=== PATIENT | male | born 1960 | race Caucasian/White ===

== ENCOUNTER 2025-03-13 07:59 | Outpatient (CLI) | payer MEDICARE, SELFPAY ==
[2025-03-13 10:51] LABS: Anion Gap 12 (5-15); BUN 12 mg/dL (4-19); BUN/Creat Ratio 12.7 RATIO (10-20); Calcium,Total 9.2 mg/dL (7.6-11.0); Carbon Dioxide 22.2 mmol/L (21.0-32.0); Chloride 105 mmol/L (98-108); Cholesterol 124 mg/dL (<=200); Creatinine, Serum 0.91 mg/dL (0.70-1.20); EST Glomerular Filtration Rate 93 (>60); Glucose 94 mg/dL (70-99); High Density Lipoprotein 30 mg/dL; Low Density Lipoprotein Calc. 79 mg/dL; PSA,Total- Diagnostic 0.62 ng/mL (0.00-4.00); Potassium 3.6 mmol/L (3.3-5.1); Sodium Level 140 mmol/L (133-145); Triglycerides 77 mg/dL; Very Low Density Lipoprotein 15 mg/dL (5-40); cholesterol:hdl ratio screen 4.18
== END 2025-03-13 23:59 | disposition home or self-care (01) ==
LOC: MTLAB 08:09
PROVIDERS: PCP Family Medicine; Referring Provider Family Medicine; Visit Provider Family Medicine
DX: Z00.00 Encounter for general adult medical examination without abnormal findings (principal)
CPT/HCPCS: 36415; 80048; 80061; 84153

== ENCOUNTER 2025-05-02 06:43 | Day surgery (SDC) | payer MEDICARE, SELFPAY ==
[2025-05-02] VITALS (7 sets, daily range): BP systolic 105–156; BP diastolic 70–92; PULSE 65–86; RESP 16–18; TEMP 36.3–36.7; O2SAT 92–96; BMI 32.8
--- OUTSIDE RECORDS SUMMARY | 2025-05-02 06:47 | XMS RPT_ITS | CCD ---
Author Organization [facility] Inform ion Partnership [facility] Care Team Providers Care Material Control Manager Name Role Phone Unavailable Primary Care Provider Unavailserge Culp MD, Dr. Tilley Primary Care Provider Robbi TREVINO, Dr. Tilley Attending Provider Robbi TREVINO, Dr. Tilley Referring Provider [phone] Jarek Culp Referring Unavailable Jarek Culp Attending Unavailable Jarek Culp Primary Care Unavailable Guy Rojo Attending Unavailable Jarek Culp Referring Unavailable Jarek Culp Primary Care Unavailable Problems Problem Classification Problem Date Documented Da te Episodic/Chronic Other circulatory disease (1 source) Elevated blood-pressure reading without diagnosis of hypertension; Translations: [Elevated blood-pressure reading, without diagnosis of hypertension] Episodic Other nervous system disorders (1 source) Paresthesia of foot ; Translations: [Other disturbances of skin sensation] Episodic Results Test Name Value Interpretation Reference Range Facility Anion gap in Serum or Plasma Ordered By: Jarek Culp on 03-13-2025 Anion gap [Moles/Vol] 12 mmol/L 02-20 [facility] BUN/creatinine ratioOrdered By: Jarek Culp on 03-13-2025 Urea nitrogen/Creatinine [Mass ratio] 12.7 mg/mg - [facility] Basic Metabolic Profile (BMP )on 03-13-2025 BUN/CRE 12.7 RATIO Normal 07-28 [facility] Comment on above: Performed By: #### L 500.2500, L500.4100, L501.9940 #### [facility] [address] [place], [address] Calcium [Mass/Vol] 9.2 mg/dL Normal 7.6-11.0 [facility] Comment on above: Performed By: #### L 500.2500, L500.4100, L501.9940 #### [facility] [address] [place], [address] Chloride [Moles/Vol] 105 mmol/L Normal 98-108 [facility] Comment on above: Performed By: #### L 500.2500, L500.4100, L501.9940 #### [facility] [address] [place], [address] CO2 [Moles/Vol] 22.2 mmol/L Normal 21.0-32.0 [facility] Comment on above: Performed By: #### L 500.2500, L500.4100, L501.9940 #### [facility] [address] [place], [address] Creatinine [Mass/Vol] 0.91 mg/dL Normal 0.70-1.20 [facility] Comment on above: Performed By: #### L 500.2500, L500.4100, L501.9940 #### [facility] [address] [place], [address] GAP 12 Normal 5-15 [facility] Comment on above: Performed By: #### L 500.2500, L500.4100, L501.9940 #### [facility] [address] [place], [address] GFR/1.73 sq M.predicted among non-blacks MDRD (S/P/Bld) [Vol rate/Area] 93 mL/min/{1.73_m2} Normal >60 [facility] Comment on above: Result Comment: mL/m in/1.73m2 CKD-EPI Creatinine Equation (2020) Performed By: #### L 500.2500, L500.4100, L501.9940 #### [facility] [address] [place], [address] Glucose [Mass/Vol] 94 mg/dL Normal 70-99 [facility] Comment on above: Performed By: #### L 500.2500, L500.4100, L501.9940 #### [facility] [address] [place], [address] Potassium [Moles/Vol] 3.6 mmol/L Normal 3.3-5.1 [facility] Comment on above: Performed By: #### L 500.2500, L500.4100, L501.9940 #### [facility] [address] [place], [address] Sodium [Moles/Vol] 140 mmol/L Normal 133-145 [facility] Comment on above: Performed By: #### L 500.2500, L500.4100, L501.9940 #### [facility] [address] [place], [address] Urea nitrogen [Mass/Vol] 12 mg/dL Normal 4-19 [facility] Comment on above: Performed By: #### L 500.2500, L500.4100, L501.9940 #### [facility] [address] [place], [address] Calculated very low density lipoprotein (VLDL) cholesterol measurementOrdered By: Jarek Culp on 03-13-2025 Calculated very low density lipoprotein (VLDL) cholesterol measurement 15 mg/dL 5-40 [facility] Carbon dioxide, total [Moles /volume] in Central venous bloodOrdered By: Jarek Culp on 03-13-2025 CO2 [Moles/Vol] 22.2 mmol/L 21.0-32.0 [facility] Chloride assayOrdered By: Joni Culp on 03-13-2025 Chloride [Moles/Vol] 105 mmol/L 98-108 [facility] Glomerular filtration rate ( GFR) estimation/1.73 sq m using serum, plasma, or whole bOrdered By: Jarek Culp on 03-13-2025 GFR/1.73 sq M.predicted among non-blacks MDRD (S/P/Bld) [Vol rate/Area] 93 mL/min/{1.73_m2} >60 [facility] Comment on above: mL/min/1.73m2 CKD-EP I Creatinine Equation (2020) LDL calc ser/plasOrdered By: Jarek Culp on 03-13-2025 Cholesterol in LDL [Mass/Vol] 79 mg/dL [facility] Comment on above: Jmntzywstz=234-674 m g/dL & Higher Tody=365 mg/dL or greater Lipid Profileon 03-13-2025 CHOL:HDL 4.18 Normal [facility] Comment on above: Performed By: #### L 500.2500, L500.4100, L501.9940 #### [facility] [address] [place], [address] Cholesterol [Mass/Vol] 124 mg/dL Normal <=200 [facility] Comment on above: Result Comment: Chol esterol level, Desirable <200 mg/dL Borderline high cholesterol 200-239 mg/dL High cholesterol >=240 mg/dL Recommendations of the NCEP Adult Treatment Panel for the following risk-cutoff thresholds for the [place] population. Performed By: #### L 500.2500, L500.4100, L501.9940 #### [facility] [address] [place], [address] Cholesterol in HDL [Mass/Vol] 30 mg/dL Low [facility] Comment on above: Result Comment: Alina onal Cholesterol Education Program (NCEP) guidelines: <40 mg/dL: Low HDL-cholesterol (major risk factor for CHD) >= 60 mg/dL: High HDL-cholesterol (negative risk factor for CHD) HDL-cholesterol is affected by a number of factors, e.g. smoking, exercise, hormones, sex and age. Performed By: #### L 500.2500, L500.4100, L501.9940 #### [facility] [address] [place], [address] Cholesterol in LDL [Mass/Vol] 79 mg/dL Normal [facility] Comment on above: Result Comment: Bord cercvb=753-070 mg/dL Higher Pgvy=773 mg/dL or greater Performed By: #### L 500.2500, L500.4100, L501.9940 #### [facility] [address] [place], [address] Cholesterol in VLDL [Mass/Vol] 15 mg/dL Normal 5-40 [facility] Comment on above: Performed By: #### L 500.2500, L500.4100, L501.9940 #### [facility] [address] [place], [address] Triglyceride [Mass/Vol] 77 mg/dL Normal [facility] Comment on above: Result Comment: The drugs N-Acetylcysteine and Metamizole may falsely depress this assay. Normal range: <150 mg/dL Borderline High: 150-199 mg/dL High: 200-499 mg/dL Very High: >500 mg/dL Performed By: #### L 500.2500, L500.4100, L501.9940 #### [facility] [address] [place], [address] PSA,Total- Diagnosticon 06-0 PSA, DIAGNOSTIC 0.62 ng/mL Normal 0.00-4.00 [facility] Comment on above: Result Comment: This test was performed using the [employer] tPSA method. Measured values of a patient??sample can vary depending on the testing procedure used. PSA values determined on patient samples by different testing procedures cannot be used interchangeably. If there is a change in PSA assays while monitoring therapy, sequential testing should be performed to confirm baseline values. Performed By: #### L 500.2500, L500.4100, L501.9940 #### [facility] [address] [place], [address] Potassium measurement (mass/ volume)Ordered By: Jarek Culp on 03-13-2025 Potassium (Unsp spec) [Mass/Vol] 3.6 mmol/L 3.3-5.1 [facility] Screening total cholesterol/ high density lipoprotein (HDL) cholesterol ratioOrdered By: Jarek Culp on 03-13-2025 Cholesterol.total/Lolita sterol in HDL [Mass ratio] 4.18 {ratio} [facility] Serum creatinine measurement (mass/volume)Ordered By: Jarek Culp on 03-13-2025 Creatinine [Mass/Vol] 0.91 mg/dL 0.70-1.20 [facility] Serum glucose measurement (m ass/volume)Ordered By: Jarek Culp on 03-13-2025 Glucose [Mass/Vol] 94 mg/dL 70-99 [facility] Serum or plasma calcium wesley urement (mass/volume)Ordered By: Jarek Culp on 03-13-2025 Calcium [Mass/Vol] 9.2 mg/dL 7.6-11.0 [facility] Serum or plasma cholesterol in HDL measurement (mass/volume)Ordered By: Jarek Culp on 03-13-2025 Cholesterol in HDL [Mass/Vol] 30 mg/dL Low >40 [facility] Comment on above: National Cholesterol Education Program (NCEP) guidelines:<40 mg/dL: Low HDL-cholesterol (major risk factor for CHD)>= 60 mg/dL: High HDL-cholesterol (negative risk factor for CHD)HDL-cholesterol is affected by a number of factors, e.g. smoking, exercise, hormones, sex and age. Serum or plasma cholesterol measurement (mass/volume)Ordered By: Jarek Culp on 03-13-2025 Cholesterol [Mass/Vol] 124 mg/dL <201 [facility] Comment on above: Cholesterol level, D esirable <200 mg/dLBorderline high cholesterol 200-239 mg/dLHigh cholesterol >=240 mg/dLRecommendations of the NCEP Adult Treatment Panel for the following risk-cutoff thresholds for the [place] population. Serum or plasma urea nitroge n measurement (mass/volume)Ordered By: Jarek Culp on 03-13-2025 Urea nitrogen [Mass/Vol] 12 mg/dL 4-19 [facility] Sodium levelOrdered By: Jarek Culp on 03-13-2025 Sodium [Moles/Vol] 140 mmol/L 133-145 [facility] Triglycerides measurementOrd ered By: Jarek Culp on 03-13-2025 Triglyceride [Mass/Vol] 77 mg/dL <199 [facility] Comment on above: The drugs N-Acetylcy steine and Metamizole may falsely depress this assay. Normal range: <150 mg/dLBorderline High: 150-199 mg/dLHigh: 200-499 mg/dLVery High: >500 mg/dL CNPViola 05-30-2021 CNPN Telephone ([facility]) ---- RIVERA HERNÁNDEZ ([id number]) 1960 M Date Time Provider Department 05/30/21 ARNIE AGUDELO During your visit today, we recorded the following information about you: Angelina Joshi Ma 05/30/2021 1:05 PM Signed ----- Message from Arnie Agudelo DO sent at 05/29/2021 9:12 PM EDT ----- Let know foot xray normal no bone issues Angelina Joshi Ma 05/30/2021 1:06 PM Signed ----- Message from Arnie Agudelo DO sent at 05/29/2021 9:11 PM EDT ----- Let him know labs are all normal Isidra Liu 05/31/2021 10:02 AM Signed LVM to call office Jose Simental 05/31/2021 11:49 AM Signed Patient aware of both results Allergies As of Date: 05/30/2021 (No Known Allergies) Date Reviewed: 05/28/2021 Reviewed by: Angelina Joshi Ma - Fully Assessed Reason for Visit: Results [95] Problem List As Of Date: 05/30/2021 (None) Encounter Status:Closed by ANGELINA JOSHI MA on 05/30/21 Normal [facility] CBC and Differentialon 05-28 Abs Baso <0.03 Normal <0.11 [facility] Comment on above: Performed By: #### C MP, CBCDIF, HBA1C #### [facility] [address] [place], [place] [address] Abs [place] 0.40 k/uL Normal <0.87 [facility] Comment on above: Performed By: #### C MP, CBCDIF, HBA1C #### [place] [address] Abs Neut 3.20 k/uL Normal 1.45-7.50 [facility] Comment on above: Performed By: #### C MP, CBCDIF, HBA1C #### [place] [phone] Absolute nRBC <0.01 Normal <0.01 [facility] Comment on above: Performed By: #### C MP, CBCDIF, HBA1C #### [place] [phone] Basophils/100 WBC (Bld) 0.4 % Normal [facility] Comment on above: Performed By: #### C MP, CBCDIF, HBA1C #### [place] [address] DTYPE Auto Diff Normal [facility] Comment on above: Performed By: #### C MP, CBCDIF, HBA1C #### [place] [phone] Eosinophils (Bld) [#/Vol] 0.19 10*3/uL Normal <0.46 [facility] Comment on above: Performed By: #### C MP, CBCDIF, HBA1C #### [place] [address] Eosinophils/100 WBC (Bld) 3.7 % Normal [facility] Comment on above: Performed By: #### C MP, CBCDIF, HBA1C #### [place] [phone] Erythrocyte distribution width (RBC) [Ratio] 12.2 % Normal 11.5-15.0 [facility] Comment on above: Performed By: #### C MP, CBCDIF, HBA1C #### [facility] [address] [place], [place] [address] Hematocrit (Bld) [Volume fraction] 47.4 % Normal 39.0-51.0 [facility] Comment on above: Performed By: #### C MP, CBCDIF, HBA1C #### [place] [address] [place], [place] [address] Hemoglobin (Bld) [Mass/Vol] 16.5 g/dL Normal 13.0-17.0 [facility] Comment on above: Performed By: #### C MP, CBCDIF, HBA1C #### [place] [address] [place] [address] Lymphocytes (Bld) [#/Vol] 1.31 10*3/uL Normal 1.00-4.00 [facility] Comment on above: Performed By: #### C MP, CBCDIF, HBA1C #### [place] [address] [place], [place] [address] Lymphocytes/100 WBC (Bld) 25.5 % Normal [facility] Comment on above: Performed By: #### C MP, CBCDIF, HBA1C #### [place] [address] [place], [place] [address] MCH 31.9 pG Normal 26.0-34.0 [facility] Comment on above: Performed By: #### C MP, CBCDIF, HBA1C #### [place] [address] [place], [place] [address] MCHC (RBC) [Mass/Vol] 34.8 g/dL Normal 30.5-36.0 [facility] Comment on above: Performed By: #### C MP, CBCDIF, HBA1C #### [place] [address] [place], [place] [address] MCV (RBC) [Entitic vol] 91.5 fL Normal 80.0-100.0 [facility] Comment on above: Performed By: #### C MP, CBCDIF, HBA1C #### [facility] [address] [place], [place] [address] Monocytes/100 WBC (Bld) 7.8 % Normal [facility] Comment on above: Performed By: #### C MP, CBCDIF, HBA1C #### [facility] [address] [place], [place] [address] Neutrophils/100 WBC (Bld) 62.6 % Normal [facility] Comment on above: Performed By: #### C MP, CBCDIF, HBA1C #### [place] [address] [place] [address] NRBCs 0.0 /100 WBC Normal 0 [facility] Comment on above: Performed By: #### C MP, CBCDIF, HBA1C #### [place] [address] [place] [address] Platelet mean volume (Bld) [Entitic vol] 9.5 fL Normal 9.0-12.7 [facility] Comment on above: Performed By: #### C MP, CBCDIF, HBA1C #### [place] [address] [place], [place] [address] Platelets (Bld) [#/Vol] 238 10*3/uL Normal 150-400 [facility] Comment on above: Performed By: #### C MP, CBCDIF, HBA1C #### [facility] [address] [place], [place] [address] RBC (Bld) [#/Vol] 5.18 10*6/uL Normal 4.20-6.00 [facility] Comment on above: Performed By: #### C MP, CBCDIF, HBA1C #### [facility] [address] [place] [phone] WBC (Bld) [#/Vol] 5.14 10*3/uL Normal 3.70-11.00 [facility] Comment on above: Performed By: #### C MP, CBCDIF, HBA1C #### [facility] [address] [place], [place] [address] CNOVon 05-28-2021 CNOV Office Visit (STFLF) ---- RIVERA HERNÁNDEZ ([id number]) 1960 M Date Time Provider Department 05/28/21 10:00 AM ARNIE AGUDELO MAGO During your visit today, we recorded the following information about you: Temperature Pulse Respiration Blood pressure 98 degrees 77/minute 16/minute 130/84 Weight Height 103.6 kg 1.778 m Arnie Agudelo DO 05/28/2021 9:57 AM Signed New pt with foot pain went to urgent care Told to f/u Here to establish with new doc Pain is fleeting Intermittent Mostly rt foot The history is provided by the patient. No foreign languages department chair was used. Pain (foot) The pain is present in the right foot, right lower leg and left foot. This is a new problem. The current episode started more than 1 month ago. The problem occurs intermittently. The problem has been gradually worsening. The quality of the pain is described as burning. The pain is moderate. Associated symptoms include tingling. Pertinent negatives include no inability to bear weight, joint swelling, limited range of motion or stiffness. He has tried nothing for the symptoms. HISTORY REVIEWED History reviewed. No pertinent past medical history. History reviewed. No pertinent surgical history. FAMILY HISTORY Problem Relation Age of Onset - Heart disease Father Social History Social History Narrative Not on file Allergies: ALLERGIES No Known Allergies Medications: No prescriptions on file. Problem List: There is no problem list on file for this patient. Review of Systems Constitutional: Negative. HENT: Negative. Respiratory: Negative. Cardiovascular: Negative. Endocrine: Negative. Genitourinary: Negative. Musculoskeletal: Positive for arthralgias (rt foot pain). Negative for stiffness. Allergic/Immunologi c: Negative. Neurological: Positive for tingling. Hematological: Negative. Psychiatric/Behavio ral: Negative. Physical Exam Constitutional: Appearance: Normal appearance. Cardiovascular: Rate and Rhythm: Normal rate and regular rhythm. Pulses: Dorsalis pedis pulses are 3+ on the right side. Posterior tibial pulses are 3+ on the right side. Musculoskeletal: Right foot: Normal range of motion. No deformity, bunion, Charcot foot, foot drop or prominent metatarsal heads. Feet: Feet: Right foot: Protective Sensation: 10 sites tested. 10 sites sensed. Skin integrity: Skin integrity normal. Toenail Condition: Right toenails are normal. Left foot: Protective Sensation: 10 sites tested. 10 sites sensed. Comments: flleeting intermittent pain Skin: General: Skin is warm and dry. Neurological: General: No focal deficit present. Mental Status: He is alert and oriented to person, place, and time. Psychiatric: Mood and Affect: Mood normal. Behavior: Behavior normal. Thought Content: Thought content normal. Judgment: Judgment normal. BP 130/84 Pulse 77 Temp 36.7 ?C (98 ?F) Resp 16 Ht 177.8 cm (5' 10) Wt 103.6 kg (228 lb 6.4 oz) SpO2 98% BMI 32.77 kg/m? ASSESSMENT/PLAN: 1. Foot pain, right - ICD9: 729.5, ICD10: M79.671 Work up No pain now - XR FOOT GENERAL 3V AP/LAT/OBL RT Arnie Agudelo DO Referring Provider: SELF [200] Allergies As of Date: 05/28/2021 (No Known Allergies) Date Reviewed: 05/28/2021 Reviewed by: Angelina Joshi Ma - Fully Assessed Reason for Visit: Foot Pain (Midfoot) [1587] Cmt: c/o burning sensation in feet - worse on R foot Visit Diagnosis:Foot pain, right [M79.671] Order(s):ECG COMPLETE [ECG01] Order #: [id number] FUTURE XR FOOT GENERAL 3V AP/LAT/OBL RT [4341730] Order #: [id number] FUTURE COMP METABOLIC PANEL [SQCMP] Order #: [id number] FUTURE CBC + DIFF [SQCBCDIF] Order #: [id number] FUTURE HGB A1C [FJRUP9R] Order #: [id number] FUTURE Problem List As Of Date: 05/28/2021 (None) Disposition: Return if symptoms worsen or fail to improve. Follow-up and Disposition History Recorded Encounter Status:Closed by ARNIE AGUDELO on 05/28/21 Normal [facility] Comp Metabolic Panelon 05-28 Albumin [Mass/Vol] 4.6 g/dL Normal 3.9-4.9 [facility] Comment on above: Performed By: #### C MP, CBCDIF, HBA1C #### [facility] [address] [place], [place] [address] ALP [Catalytic activity/Vol] 84 U/L Normal 38-113 [facility] Comment on above: Performed By: #### C MP, CBCDIF, HBA1C #### [facility] [address] [place], [place] [address] ALT [Catalytic activity/Vol] 14 U/L Normal 10-54 [facility] Comment on above: Performed By: #### C MP, CBCDIF, HBA1C #### [facility] [address] [place], [place] [address] Anion gap [Moles/Vol] 12 mmol/L Normal 9-18 [facility] Comment on above: Performed By: #### C MP, CBCDIF, HBA1C #### [facility] [address] [place], [place] [address] AST [Catalytic activity/Vol] 19 U/L Normal 14-40 [facility] Comment on above: Performed By: #### C MP, CBCDIF, HBA1C #### [facility] [address] [place], [place] [address] Bilirubin [Mass/Vol] 1.3 mg/dL Normal 0.2-1.3 [facility] Comment on above: Performed By: #### C MP, CBCDIF, HBA1C #### [facility] [address] [place], [place] [address] Calcium [Mass/Vol] 9.9 mg/dL Normal 8.5-10.2 [facility] Comment on above: Performed By: #### C MP, CBCDIF, HBA1C #### [facility] [address] [place] [address] Chloride [Moles/Vol] 102 mmol/L Normal 97-105 [facility] Comment on above: Performed By: #### C MP, CBCDIF, HBA1C #### [place] [address] CO2 [Moles/Vol] 24 mmol/L Normal 22-30 [facility] Comment on above: Performed By: #### C MP, CBCDIF, HBA1C #### [place] [phone] Creatinine [Mass/Vol] 0.94 mg/dL Normal 0.73-1.22 [facility] Comment on above: Performed By: #### C MP, CBCDIF, HBA1C #### [place] [address] [place] [address] eGFR- Amer. >60 Normal [facility] Comment on above: Performed By: #### C MP, CBCDIF, HBA1C #### [place] [address] eGFR-All Other Races >60 Normal [facility] Comment on above: Result Comment: eGFR (Estimated GFR) Units of measure: mL/min/1.73 meters squared eGFR is derived from the reexpressed MDRD Study equation using the following parameters: serum creatinine, age, gender and race. The creatinine assay has been calibrated to be traceable to IDMS. An eGFR <60 mL/min/1.73m2 for >3 months is consistent with chronic kidney disease. Refer to KDOQI guidelines for clinical interpretation. In patients with unstable renal function, e.g. those with acute kidney injury, the eGFR may not accurately reflect actual GFR. Performed By: #### C MP, CBCDIF, HBA1C #### [place] [address] [place] [address] Glucose [Mass/Vol] 92 mg/dL Normal 74-99 [facility] Comment on above: Result Comment: The [place] Diabetes Association (ADA) provides guidance for cutoff values for fasting glucose and random glucose. The ADA defines fasting as no caloric intake for at least 8 hours. Fasting plasma glucose results between 100 to 125 mg/dL indicate increased risk for diabetes (prediabetes). Fasting plasma glucose results greater than or equal to 126 mg/dL meet the criteria for diagnosis of diabetes. In the absence of unequivocal hyperglycemia, results should be confirmed by repeat testing. In a patient with classic symptoms of hyperglycemia or hyperglycemic crisis, random plasma glucose results greater than or equal to 200 mg/dL meet the criteria for diagnosis of diabetes. Reference: Standards of Medical Care in Diabetes 2016, [place] Diabetes Association. Diabetes Care. 2016.39(Suppl 1). Performed By: #### C MP, CBCDIF, HBA1C #### [place] [address] [place] [address] Potassium [Moles/Vol] 4.0 mmol/L Normal 3.7-5.1 [facility] Comment on above: Performed By: #### C MP, CBCDIF, HBA1C #### [place] [address] [place] [address] Protein [Mass/Vol] 6.7 g/dL Normal 6.3-8.0 [facility] Comment on above: Performed By: #### C MP, CBCDIF, HBA1C #### [place] [address] [place] [address] Sodium [Moles/Vol] 138 mmol/L Normal 136-144 [facility] Comment on above: Performed By: #### C MP, CBCDIF, HBA1C #### [place] [address] Urea nitrogen [Mass/Vol] 10 mg/dL Normal 9-24 [facility] Comment on above: Performed By: #### C MP, CBCDIF, HBA1C #### [address] [address] Hemoglobin A1con 05-28-2021 Glucose [Mass/Vol] 97 mg/dL Normal [facility] Comment on above: Result Comment: eAG: (Estimated average glucose) is a calculated value from HgbA1c and is technical services representative of the average blood glucose level in the last 2-3 month period. Performed By: #### C MP, CBCDIF, HBA1C #### [facility] [address] [place] [id number] HbA1c (Bld) [Mass fraction] 5.0 % Normal 4.3-5.6 [facility] Comment on above: Result Comment: [place] Diabetes Association guidelines indicate that patients with HgbA1c in the range 5.7-6.4% are at increased risk for development of diabetes, and intervention by lifestyle modification may be beneficial. HgbA1c greater or equal to 6.5% is considered diagnostic of diabetes. Performed By: #### C MP, CBCDIF, HBA1C #### [facility] [address] [place], [place] [address] XR FOOT 3V AP/LAT/OBL RTon 0 05-28-2021 XR FOOT 3V AP/LAT/OBL RT * * *Final Report* * * DATE OF EXAM: May 28 2021 10:44AM ANX [id number] - XR FOOT 3V AP/LAT/OBL RT / PROCEDURE REASON: Foot pain, right * * * * Physician Interpretation * * * * EXAMINATION: XR FOOT 3V AP/LAT/OBL RT CLINICAL HISTORY: Pain Technique: XR FOOT 3V AP/LAT/OBL RT -- RIGHT foot with 3 views on 3 images Comparison: None RESULT: No acute fracture or dislocation. Normal alignment. Dorsal talar osteophyte. Calcaneal spur. No suspicious osseous lesions. Unremarkable soft tissue. IMPRESSION: No acute findings in the right foot. State Game Protector: PSCB Transcribe Date/Time: May 28 2021 3:57P Dictated by : MARISSA LAWLER MD This examination was interpreted and the report reviewed and electronically signed by: MARISSA LAWLER MD on May 28 2021 3:58PM EST [id number] Normal [facility] CNOVon 05-18-2021 CNOV Office Visit (EXPTAL) ---- RIVERA HERNÁNDEZ ([id number]) 1960 M Date Time Provider Department 05/18/21 4:00 PM NEVA ROYAL EXPTAL During your visit today, we recorded the following information about you: Temperature Pulse Respiration Blood pressure 98.9 degrees 79/minute 16/minute 146/79 Neva Royal PA-C 05/18/2021 4:16 PM Signed ASSESSMENT/PLAN: 1. Burning sensation of foot - ICD9: 782.0, ICD10: R20.8 (primary diagnosis) 2. Elevated blood pressure reading without diagnosis of hypertension - ICD9: 796.2, ICD10: R03.0 - Encouraged dietary sodium restriction/DASH diet - Recommended regular aerobic exercise. - Recommend home blood pressure monitoring, to bring results in on next visit - Goal of BP <130/80 PLAN Please establish primary care doctor and make appt for physical Keep symptom diary of foot burning sensation Recheck for any additional needs JELANI Goyal PA-C 05/18/2021 4:25 PM Signed S-Foot burning Pt p/t express care with atraumatic right plantar foot burning sensation. Occurring intermittently for 2 months. No fall/trauma, no h/o back injury, DM. No focal weakness or poly uria/dipsea/phagia. Pt does not have PCP, has not been seen medically for 5-6 years. O BP 146/79 Pulse 79 Temp 37.2 ?C (98.9 ?F) (Temporal Artery) Resp 16 SpO2 99% A+OX3, in NAD SKIN-no signs of trauma, cellulitis, shingles or FB to right foot MS-Right foot farom, no bony pain or focal, no achilles tendon interruption of integrity or pain with palpation VASC-pulses palp, Leigha refill < 3 sec, no cyanosis or coldness MDM-no urgent findings, see plan below ASSESSMENT/PLAN: 1. Burning sensation of foot - ICD9: 782.0, ICD10: R20.8 (primary diagnosis) 2. Elevated blood pressure reading without diagnosis of hypertension - ICD9: 796.2, ICD10: R03.0 - Encouraged dietary sodium restriction/DASH diet - Recommended regular aerobic exercise. - Recommend home blood pressure monitoring, to bring results in on next visit - Goal of BP <130/80 PLAN Please establish primary care doctor and make appt for physical Keep symptom diary of foot burning sensation Recheck for any additional needs Neva Royal PA-C Referring Provider: SELF [[id number]] Allergies As of Date: 05/18/2021 (No Known Allergies) Date Reviewed: 05/18/2021 Reviewed by: Neva Royal PA-C - Fully Assessed Reason for Visit: feet issues [Other] Cmt: Right foot intermittent 2 months Primary Visit Diagnosis:Burning sensation of foot [R20.8] Other Visit Diagnosis:Elevated blood pressure reading without diagnosis of hypertension [R03.0] Problem List As Of Date: 05/18/2021 (None) Other instructions from your clinician: ASSESSMENT/PLAN: 1. Burning sensation of foot - ICD9: 782.0, ICD10: R20.8 (primary diagnosis) 2. Elevated blood pressure reading without diagnosis of hypertension - ICD9: 796.2, ICD10: R03.0 - Encouraged dietary sodium restriction/DASH diet - Recommended regular aerobic exercise. - Recommend home blood pressure monitoring, to bring results in on next visit - Goal of BP <130/80 PLAN Please establish primary care doctor and make appt for physical Keep symptom diary of foot burning sensation Recheck for any additional needs Neva Royal PA-C Disposition: Return if symptoms worsen or fail to improve. Follow-up and Disposition History Recorded Encounter Status:Closed by NEVA ROYAL on 05/18/21 Normal [facility] HISTORY PHYSICALon 1 HISTORY PHYSICAL HNO ID: [id number] Author: Neva Royal PA-C Service: ? Author Type: Physician Roving Hand Type: HANDP Filed: 05/18/2021 4:25 PM Note Text: S-Foot burning Pt p/t express care with atraumatic right plantar foot burning sensation. Occurring intermittently for 2 months. No fall/trauma, no h/o back injury, DM. No focal weakness or poly uria/dipsea/phagia. Pt does not have PCP, has not been seen medically for 5-6 years. O BP 146/79 Pulse 79 Temp 37.2 ?C (98.9 ?F) (Temporal Artery) Resp 16 SpO2 99% A+OX3, in NAD SKIN-no signs of trauma, cellulitis, shingles or FB to right foot MS-Right foot farom, no bony pain or focal, no achilles tendon interruption of integrity or pain with palpation VASC-pulses palp, Leigha refill < 3 sec, no cyanosis or coldness MDM-no urgent findings, see plan below ASSESSMENT/PLAN: 1. Burning sensation of foot - ICD9: 782.0, ICD10: R20.8 (primary diagnosis) 2. Elevated blood pressure reading without diagnosis of hypertension - ICD9: 796.2, ICD10: R03.0 - Encouraged dietary sodium restriction/DASH diet - Recommended regular aerobic exercise. - Recommend home blood pressure monitoring, to bring results in on next visit - Goal of BP <130/80 PLAN Please establish primary care doctor and make appt for physical Keep symptom diary of foot burning sensation Recheck for any additional needs Neva Royal PA-C Normal [facility] Vital Signs Date Time Vital Sign Value Performing Clinician Brigitte long 05-18-2021 16:05-0400 Body temperature 98.91 [degF] Neva Royal PA-C Work Phone: [facility] 05-18-2021 16:05-0400 Diastolic blood pressure 79 mm[Hg] Neva Royal PA-C Work Phone: [facility] 05-18-2021 16:05-0400 Heart rate 79 /min Neva Royal PA-C Work Phone: [facility] 05-18-2021 16:05-0400 Respiratory rate 16 /min Neva Royal PA-C Work Phone: [facility] 05-18-2021 16:05-0400 SaO2% (BldA) [Mass fraction] 99 % Neva Royal PA-C Work Phone: [facility] 05-18-2021 16:05-0400 Systolic blood pressure 146 mm[Hg] Neva Genny PALOMARES Work Phone: [facility] Encounters Encounter Date Encounter Type Care Provider Facility Start: 05-02-2025 ambulatory Guy Briggs lity:[facility] Start: 04-07-2025 Encounter for genera l adult medical examination without abnormal findings Jarek Culp [facility] Start: 03-13-2025 End: 03-13-[address] Jarek Culp MD Work Phone: [facility] Work Phone: Start: 03-13-2025 End: 03-13-[address] Jarek Culp MD -[facility] [place] Work Phone: Start: 03-13-2025 End: 03-13-2025 ambulatory Jarek Culp Facility:[facility] Start: 05-18-2021 End: 05-18-2021 Patient encounter procedure Neva Royal PA-C Work Phone: [facility] Comment on above: Burning sensation of foot (Primary Dx); Elevated blood pressure reading without diagnosis of hypertension Procedures Date Procedure Procedure Detail Performing Clinician Start: 03-13-2025 Assay of prostate sp ecific antigen total Dr. Jarek Culp MD Work Phone: Comment on above: This test was perfor med using the [employer] tPSA method. Measured values of a patient sample can vary depending on the testing procedure used. PSA values determined on patient samples by different testing procedures cannot be used interchangeably. If there is a change in PSA assays while monitoring therapy, sequential testing should be performed to confirm baseline values. Plan of Treatment Date Care Activity Detail Author Start: 06-09-2021 Influenza vaccination INFLUENZA (#1) [facility] Start: 2013 PROSTATE CANCER SCRE ENING DISCUSSION PROSTATE CANCER SCREENING DISCUSSION [facility] Start: 2008 Screening for malign ant neoplasm of colon [facility] Start: 2008 SHINGRIX VACCINE (1 of 2) RUSH GRIX VACCINE (1 of 2) [facility] Start: 2003 DIABETES SCREEN DIABETES SCREEN [facility] Start: 1993 LIPID SCREEN LIPID SCREEN [facility] Start: 1977 Urine microalbumin profile DTAP,TDAP ,TD (1 - Tdap) [facility] Start: 1976 HEPATITIS C SCREENING HEPATITIS C SC REENING [facility] Start: 1976 HIV SCREENING HIV SCREENING [facility] Start: 1970 Adult depression scr eening assessment DEPRESSION SCREENING [facility] Start: 1970 COVID-19 VACCINE (1) COVID-19 VACCIN E (1) [facility] Payers Date Payer Category Payer Private Health Insurance [id number] 2025 Self-pay [id number] Unknown [id number] Unknown [id number] Social History Date Type Detail Facility Tobacco smoking stat NHIS Unknown if ever smoked [facility] Start: 1960 Sex Assigned At Not on file [facility] Exposure to SARS-CoV -2 (event) Not sure [facility] Work Phone: Start: 1960 Sex Assigned At Male [facility] Progress note 05-28-2021 Note Date & Type Note Facility 05-28-2021 Note HNO ID: [id number] Author: RT Roderick(R) Service: Radiology Author Type: Cushion Former Type: Progress Notes Filed: 05/28/2021 10:40 AM Note Text: Radiology Service Progress Note PATIENT NAME: Rivera Hernández DATE OF SERVICE: May 28, 2021 TIME: 10:39 AM PATIENT IDENTITY VERIFICATION COMPLETED USING TWO (2) IDENTIFIERS: Name and Date of confirmed by patient verbally and Name and Date of confirmed by identification band. FALL SCREENING: Has the patient had 2 falls in the last year or 1 fall with injury or currently using an Ambulatory Assistive Device (Walker, Cane, Wheelchair, Crutches, etc.)? No PATIENT GENDER DATA: Male PATIENT RELEVANT IMPLANT DATA REVIEWED: Not Applicable RADIOLOGY DEPARTMENT: General X-ray: Exam(s) Completed: Lower Extremity X-Ray(s): Foot, Right PERIPHERAL IV DATA: Not applicable SIGNED BY: Jessy Newberry RT(R) May 28, 2021 10:39 AM [facility] Progress note 05-28-2021 Note Date & Type Note Facility 05-28-2021 Note HNO ID: [id number] Author: Arnie Agudelo, DO Service: ? Author Type: Physician Type: Progress Notes Filed: 05/28/2021 9:57 AM Note Text: New pt with foot pain went to urgent care Told to f/u Here to establish with new doc Pain is fleeting Intermittent Mostly rt foot The history is provided by the patient. No foreign languages department chair was used. Pain (foot) The pain is present in the right foot, right lower leg and left foot. This is a new problem. The current episode started more than 1 month ago. The problem occurs intermittently. The problem has been gradually worsening. The quality of the pain is described as burning. The pain is moderate. Associated symptoms include tingling. Pertinent negatives include no inability to bear weight, joint swelling, limited range of motion or stiffness. He has tried nothing for the symptoms. HISTORY REVIEWED History reviewed. No pertinent past medical history. History reviewed. No pertinent surgical history. FAMILY HISTORY Problem Relation Age of Onset - Heart disease Father Social History Social History Narrative Not on file Allergies: ALLERGIES No Known Allergies Medications: No prescriptions on file. Problem List: There is no problem list on file for this patient. Review of Systems Constitutional: Negative. HENT: Negative. Respiratory: Negative. Cardiovascular: Negative. Endocrine: Negative. Genitourinary: Negative. Musculoskeletal: Positive for arthralgias (rt foot pain). Negative for stiffness. Allergic/Immunologic: Negative. Neurological: Positive for tingling. Hematological: Negative. Psychiatric/Behavioral: Negative. Physical Exam Constitutional: Appearance: Normal appearance. Cardiovascular: Rate and Rhythm: Normal rate and regular rhythm. Pulses: Dorsalis pedis pulses are 3+ on the right side. Posterior tibial pulses are 3+ on the right side. Musculoskeletal: Right foot: Normal range of motion. No deformity, bunion, Charcot foot, foot drop or prominent metatarsal heads. Feet: Feet: Right foot: Protective Sensation: 10 sites tested. 10 sites sensed. Skin integrity: Skin integrity normal. Toenail Condition: Right toenails are normal. Left foot: Protective Sensation: 10 sites tested. 10 sites sensed. Comments: flleeting intermittent pain Skin: General: Skin is warm and dry. Neurological: General: No focal deficit present. Mental Status: He is alert and oriented to person, place, and time. Psychiatric: Mood and Affect: Mood normal. Behavior: Behavior normal. Thought Content: Thought content normal. Judgment: Judgment normal. BP 130/84 Pulse 77 Temp 36.7 ?C (98 ?F) Resp 16 Ht 177.8 cm (5' 10) Wt 103.6 kg (228 lb 6.4 oz) SpO2 98% BMI 32.77 kg/m? ASSESSMENT/PLAN: 1. Foot pain, right - ICD9: 729.5, ICD10: M79.671 Work up No pain now - XR FOOT GENERAL 3V AP/LAT/OBL RT Arnie Agudelo, [facility] History and physical note 05-18-2021 Neva Royal PA-C - 05/18/2021 4:18 PM EDT Note Date & Type Note Facility 05-18-2021 History and physi britt note S-Foot burning Pt p/t express care with atraumatic right plantar foot burning sensation. Occurring intermittently for 2 months. No fall/trauma, no h/o back injury, DM. No focal weakness or poly uria/dipsea/phagia. Pt does not have PCP, has not been seen medically for 5-6 years. O BP 146/79 Pulse 79 Temp 37.2 C (98.9 F) (Temporal Artery) Resp 16 SpO2 99% A+OX3, in NAD SKIN-no signs of trauma, cellulitis, shingles or FB to right foot MS-Right foot farom, no bony pain or focal, no achilles tendon interruption of integrity or pain with palpation VASC-pulses palp, Leigha refill < 3 sec, no cyanosis or coldness MDM-no urgent findings, see plan below ASSESSMENT/PLAN: 1. Burning sensation of foot - ICD9: 782.0, ICD10: R20.8 (primary diagnosis) 2. Elevated blood pressure reading without diagnosis of hypertension - ICD9: 796.2, ICD10: R03.0 - Encouraged dietary sodium restriction/DASH diet - Recommended regular aerobic exercise. - Recommend home blood pressure monitoring, to bring results in on next visit - Goal of BP <130/80 PLAN Please establish primary care doctor and make appt for physical Keep symptom diary of foot burning sensation Recheck for any additional needs Neva Royal PA-C documented in this encounter [facility] Instructions 05-18-2021 Patient Instructions Note Date & Type Note Facility 05-18-2021 Instructions Neva Royal PA-C - 05/18/2021 4:15 PM EDT ASSESSMENT/PLAN: 1. Burning sensation of foot - ICD9: 782.0, ICD10: R20.8 (primary diagnosis) 2. Elevated blood pressure reading without diagnosis of hypertension - ICD9: 796.2, ICD10: R03.0 - Encouraged dietary sodium restriction/DASH diet - Recommended regular aerobic exercise. - Recommend home blood pressure monitoring, to bring results in on next visit - Goal of BP <130/80 PLAN Please establish primary care doctor and make appt for physical Keep symptom diary of foot burning sensation Recheck for any additional needs Neva Royal PA-C documented in this encounter [facility] Evaluation note Note Date & Type Note Facility Evaluation note Diagnosis Burning sensation of foot- Primary Elevated blood pressure reading without diagnosis of hypertension documented in this encounter [facility] Evaluation note Note Date & Type Note Facility Evaluation note No assessment information availa ble [facility] Work Phone: Reason for referral (narrative) Note Date & Type Note Facility Reason for referral (narrative) No reason for referral information available [facility] Work Phone: Summary Purpose Family History No Family History Records FoundNo Family History Records FoundNo Family History Records Found Advance Directives No Advanced Directives Records FoundNo Advanced Directives Records FoundNo Advanced Directives Records Found Additional Source Comments Source Comments (unrecognize d section and content) In the event this informatio n is protected by the Federal Confidentiality of Alcohol and Drug Abuse Patient Records regulations: The Federal rules restrict any use of the information to criminally investigate or prosecute any alcohol or drug abuse patient.[facility] Reason for Visit (unrecogniz ed section and content) Reason Comments feet issues Right foot intermitt ent 2 months Status Reason Specialty Diagnoses / Procedures Referred By Contact Referred To Contact Authorized Patient Cleared - Qualified 100% [facility] Diagnoses burning in feet Procedures NEW SAME DAY Self [address], [place] [address] (unrecognized sect ion and content) No Status Records FoundNo Status Records FoundNo Status Records Found INFORMATION SOURCE (unrecogn ized section and content) DATE CREATED AUTHOR 05/30/2021 [facility] DATE CREATED AUTHOR AUTHOR'S ORGANIZ ATION 11/12/2021 [facility] DATE CREATED AUTHOR AUTHOR'S ORGANIZ ATION 05/01/2025 [facility] Care Teams (unrecognized sec tion and content) Team Status: Active Member Role Status Dates Dr. Beba Morales MD Family Provider Active Dr. Jarek Culp MD Primary Care Provider Active Team Status: Inactive Member Role Status Dates Dr. Jarek Culp MD Primary Care Provider Active Start: March 13, 2025 End: March 13, 2025 Dr. Jarek Culp MD Attending Provider Active Start: March 13, 2025 End: March 13, 2025 Dr. Jarek Culp MD Referring Provider Active Start: March 13, 2025 End: March 13, 2025 Goals (unrecognized section and content) Goals may be documented in a n alternate section FOR RECORDS PERTAINING TO PATIENTS WHO ARE OR HAVE BEEN ENROLLED IN A CHEMICAL DEPENDENCY/SUBSTANCEABUSE PROGRAM, SOME INFORMATION MAY BE OMITTED. This clinical summary was aggregated from multiple sources. Caution should be exercised in using it in the provision of clinical care. This summary normalizes information from multiple sources, and as a consequence, information in this document may materially change the coding, format and clinical context of patient data. In addition, data may be omitted in some cases. CLINICAL DECISIONS SHOULD BE BASED ON THE PRIMARY CLINICAL RECORDS. [facility]. provides no warranty or guarantee of the accuracy or completeness of information in this document.
[2025-05-02] MEDS: Lactated Ringers 1,000 ML 15 ML IV (07:14)
--- NOTE | 2025-05-02 07:45 | PCM.PRE.AN2 ---
ASA Classification* ASA Classification ASA Classification: 2 Assessment & Plan Anesthesia* Anesthesia Assessment Anesthesia Assessment: Discussed sedation and/or anesthesia options, risks, benefits, and alternatives with patient/parents/legal guardian/POA. Questions invited. The patient/parents/legal guardian/POA seems to understand and agrees to proceed with anesthesia plan. Reviewed the physical assessment, medical history, allergy history and patient home medications list prior to surgery/procedure/anesthetic and documented any changes. Performed airway and anesthesia risk assessments. Anesthesia Type Anesthesia Type: MAC History Source History Obtained from:: Patient and Chart Anesthesia Focused Assessment* Temperature: 97.4 F Pulse Rate: 86 Blood Pressure: 156/92 Respiratory Rate: 18 Pulse Ox: 96 Oxygen Delivery Method: Room Air Airway Assessment Mouth opens: >3 cm Mallampati Score: IV Teeth Condition: Dentures (Patient has upper dentures) and Missing (Missing several teeth on the bottom. Rest of the teeth are tight.) Neck Range of motion (ROM): Limited ROM (Somewhat Decreased) Labs Anesthesia Preop lab: CBC CHEMISTRY Potassium 3.6 mmol/L (3.3-5.1) 03/13/25 08:10 03/13/25 Sodium 140 mmol/L (133-145) 03/13/25 08:10 03/13/25 BUN 12 mg/dL (4-19) 03/13/25 08:10 03/13/25 Creatinine 0.91 mg/dL (0.70-1.20) 03/13/25 08:10 03/13/25 Glucose 94 mg/dL (70-99) 03/13/25 08:10 03/13/25 COAG Pre-Assessment Diagnosis/Proposed Procedure Planned Operative Procedure(s): COLONOSCOPY Anesthesia History Anesthesia History - medical technologist chief: Anesthesia History - medical technologist chief Hx Hospitalization No 04/29/25 15:09 Any Problems With Anesthesia No 04/29/25 15:09 Cholinesterase deficiency No 04/29/25 15:09 You/Your Family Experience No 04/29/25 15:09 fever (hyperthermia) with Relationship Recent Exposure to Contagious No 05/02/25 07:07 Disease Does patient have nerve No 04/29/25 15:09 stimulator Patient instructed to have device shut off --Does patient have Pacemaker No 05/02/25 07:07 or ICD? When Was Last Pacemaker Check QUESTION #4 FULL TEXT: You/Your Family Experience fever (hyperthermia) with Anesthesia Last Oral Intake Last Oral intake: Last Oral Intake NPO since 20:00 05/02/25 07:07 Meds taken in AM with sips of water? Meds patient instructed to take am of surgery PONV PONV - medical technologist chief: PONV - medical technologist chief Female No 04/29/25 15:09 HX of Motion Sickness No 04/29/25 15:09 HX of N/V After Surgery No 04/29/25 15:09 Non-Smoker Yes 04/29/25 15:09 Duration of Surgery greater No 04/29/25 15:09 than 60 minutes Number of Risk Factors 1 04/29/25 15:09 PONV Score Low Risk 04/29/25 15:09 Height & Weight Height & Weight: Anesthesia: Height & Weight Height 5 ft 9 in 05/02/25 07:07 Weight: 101 kg 05/02/25 07:07 Body Mass Index (BMI) 32.8 05/02/25 07:07 Respiratory Assessment Respiratory Assessment - medical technologist chief: Respiratory Tract Infection Hx - medical technologist chief Hx Respiratory Tract Infection No 04/29/25 15:09 STOP Sleep Apnea STOP Sleep Apnea - medical technologist chief: STOP Sleep Apnea - medical technologist chief Hx Hypertension No 04/29/25 15:09 Hx Sleep Apnea No 04/29/25 15:09 CPAP BIPAP Do you snore loudly (louder No 04/29/25 15:09 than talking or can be heard Do you often feel tired/ No 04/29/25 15:09 fatigued/ sleepy during daytime? Has anyone observed you stop No 04/29/25 15:09 breathing during sleep? STOP Results Negative 04/29/25 15:09 QUESTION #5 FULL TEXT : Do you snore loudly (louder than talking or can be heard through closed doors)? Tobacco Use History Tobacco Use History - medical technologist chief: Tobacco Use History - medical technologist chief Tobacco Use Smoking Status Never smoker 04/29/25 15:09 Hx Tobacco Use No 04/29/25 15:09 Years Smoking Packs Smoked per Day Smoking Cessation Date was within the last 15 years Hx Smoking Cessation Date Hx Smoking Cessation Counseling Hematologic Medial History Hematologic Hx - medical technologist chief: Hematologic Medical Hx - information systems security developer Hx of Blood Transfusion No 04/29/25 15:09 Hx of Transfusion in last 3 No 04/29/25 15:09 Months Date of Last Transfusion (if within last 3 months) Ever experience any problems No 04/29/25 15:09 with transfusion(s)? Specify any problems Hx of Preganancy in last 3 N/A 04/29/25 15:09 Months Nurse Filling Out Transfusion [email or web address] 04/29/25 15:09 & Questions: Date: 04/29/25 04/29/25 15:09 Time: 15:10 04/29/25 15:09 Patient unable to answer at this time (ie. confused, unrespo /Reproduction History /Reproductive History - medical technologist chief: /Reproductive Hx- medical technologist chief Hx Now Gestational Age (in weeks): EDC: Hx Hx Para Hx Section SAB Active Medications Active Medications: Current Medications Generic Name Dose Route Start Last Admin Trade Name Freq PRN Reason Stop Dose Admin Lactated Ringer's 1,000 mls @ 15 mls/hr 05/02/25 07:00 05/02/25 07:14 IV 15 mls/hr .Q48H SHERINE Administration PFSH Medical History Wears dentures Home Medications ?Medication ?Instructions ?Recorded ?Last Taken ?Type NK 04/29/25 Unknown History Allergy/AdvReac Type Severity Reaction Status Date / Time No Known Allergies Allergy Verified 05/02/25 07:06 no surgical history Social History Smoking Status: Never smoker Review of Systems (Anesthesia) ROS Narrative System reviewed and no additional complaints, except as documented.
--- NOTE | 2025-05-02 07:56 | HP.PCM_ITS ---
HPI - General HPI Narrative LEWIS HERNÁNDEZ, is a 64 M who presents for screening colonoscopy. Patient has never had a colonoscopy in the past. He denies abdominal pain or blood in the stool. No family history of colon cancer. [facility] Medical History Wears dentures Home Medications ?Medication ?Instructions ?Recorded ?Last Taken ?Type NK 04/29/25 Unknown History Allergy/AdvReac Type Severity Reaction Status Date / Time No Known Allergies Allergy Verified 05/02/25 07:06 Surgical History no surgical history Social History Smoking Status: Never smoker Past Medical/Surgical History Planned Operation Planned Operative Procedure(s): COLONOSCOPY Previous Hospitalizations/Surgeries HX Hospitalizations: No Any Problems With Anesthesia: No You/Your Family Experience Fever (Hyperthermia) With Anes: No Cholinesterase deficiency: No Cardiovascular Hx Hypertension: No Respiratory Hx Sleep Apnea: No Hx Respiratory Tract Infection/Cold (presently): No Do You Snore Loudly (louder than talking or can be heard): No Do You Often Feel Tired/ Fatigued/ Sleepy Dring Daytime?: No Has Anyone Observed You Stop Breathing During Sleep?: No Result (for STOP score): Negative Smoking Status: Never smoker Neurological Does patient have nerve stimulator: No Miscellaneous Recent Exposure to Contagious Disease: No Allergies No Known Allergies Allergy (Verified 05/02/25 07:06) Discharge After D/C, Where Do you Plan to Go: Return Home Vital Signs Vital Signs Vital Signs: 05/02/25 07:07 05/02/25 07:07 05/02/25 07:51 Temperature 97.4 F L 97.4 F L Temperature Source Temporal Pulse Rate 86 86 Respiratory Rate 18 18 Respiratory Pattern Normal Blood Pressure 156/92 H 156/92 H Blood Pressure Mean 113 Blood Pressure Source Monitor Blood Pressure Position Semi-Fowlers Blood Pressure Location Right Arm Pulse Ox 96 96 Oxygen Delivery Method Room Air Room Air Weight Weight: 222 lb 10.67 oz Body Mass Index (BMI) 32.8 Physical Exam Const alert and oriented x3 HEENT normocephalic Eyes PERRL Resp normal respiratory effort and normal air movement Cardio regular rate and regular rhythm GI soft to palpation, non-tender and non-distended Extremity normal to inspection Assessment & Plan Assessment/Plan (1) Screen for colon cancer: PLAN: I explained endoscopy in detail to the patient. I explained the risks including but not limited to stroke or heart attack with anesthesia, perforation of the GI tract, bleeding, infection. I explained that any of these could necessitate further emergency surgery. The patient understands and all questions were answered sufficiently. The patient wishes to proceed with procedure. Guy Rojo MD Pager: [facility] [address] [place] [address] [address] [place] [address] Office: Surgery Risks - Colonoscopy Risks Include but are not Limited To: Risks include but are not limited to: Bleeding, perforation requiring further surgery, inability to complete colonoscopy requiring barium enema.
--- NOTE | 2025-05-02 08:26 | OP.CCLET_ITS ---
05/02/2025 Jarek Culp MD [address] [place] [address] Re : Colonoscopy procedure for Rivera Campa Dear Dr. Culp This procedure was performed on Friday, May 02, 2025. My impressions and recommendations are as follows: Impressions : - The entire examined colon is normal on direct and retroflexion views. - No specimens collected. Recommendations : - Discharge patient to home. - Resume previous diet. - Continue present medications. - Repeat colonoscopy in 10 years for screening purposes. My findings are described in the full procedure note, which is enclosed. If I can be of further assistance, please feel free to contact me at Doctor phone number(s): , Work: . Sincerely, Guy Rojo MD 05/02/2025 8:25:58 AM This report has been signed electronically.
--- NOTE | 2025-05-02 08:26 | OP.COLON_ITS ---
Patient Name: Rivera Campa Procedure Date: 05/02/2025 7:58 AM Date of : 1960 Age: 64 Procedure: Colonoscopy Indications: Screening for colorectal malignant neoplasm Providers: Guy Rojo MD Referring MD: Jarek Culp MD Medicines: Propofol per Anesthesia Patient Profile: Last Colonoscopy: none. The patient's first colonoscopy is today. Complications: No immediate complications. Procedure: Pre-Anesthesia Assessment: - Prior to the procedure, a History and Physical was performed, and patient medications and allergies were reviewed. The patient's tolerance of previous anesthesia was also reviewed. The risks and benefits of the procedure and the sedation options and risks were discussed with the patient. All questions were answered, and informed consent was obtained. Prior Anticoagulants: The patient has taken no anticoagulant or antiplatelet agents. After reviewing the risks and benefits, the patient was deemed in satisfactory condition to undergo the procedure. After I obtained informed consent, the scope was passed under direct vision. Throughout the procedure, the patient's blood pressure, pulse, and oxygen saturations were monitored continuously. The Colonoscope was introduced through the anus and advanced to the cecum, identified by appendiceal orifice and ileocecal valve. The colonoscopy was performed without difficulty. The patient tolerated the procedure well. The quality of the bowel preparation was adequate to identify polyps. Scope In: 8:09:09 AM Scope Withdrawal Time 0 hours 6 minutes 18 seconds Scope Out: 8:23:36 AM Total Procedure Duration Time 0 hours 14 minutes 27 seconds Findings: The entire examined colon appeared normal on direct and retroflexion views. Impression: - The entire examined colon is normal on direct and retroflexion views. - No specimens collected. Recommendation: - Discharge patient to home. - Resume previous diet. - Continue present medications. - Repeat colonoscopy in 10 years for screening purposes. Procedure Code(s): --- Professional --- 26506, Colonoscopy, flexible; diagnostic, including collection of specimen(s) by brushing or washing, when performed (separate procedure) Diagnosis Code(s): --- Professional --- Z12.11, Encounter for screening for malignant neoplasm of colon CPT copyright 2021 [employer]. All rights reserved. The codes documented in this report are preliminary and upon application development team lead review may be revised to meet current compliance requirements. Guy Rojo MD 05/02/2025 8:25:58 AM This report has been signed electronically. Number of Addenda: 0 Note Initiated On: 05/02/2025 7:58 AM
--- NOTE | 2025-05-02 08:30 | PCM.POST.ANE ---
Anesthesia: Postop Eval I Current Vital Signs Temperature: 98.1 F Pulse Rate: 77 Blood Pressure: 105/72 Respiratory Rate: 16 Pulse Ox: 93 Oxygen Delivery Method: Room Air Assessment Airway patent: Yes Spontaneous unlabored respirations: Yes Mental status: Asleep nausea: No Vomiting: No Anesthesia Complication: No Fluid Hydration Crystalloid volume administer (ml): 400 Total IV fluid infused: 400 Progress Note Anesthesia document: Postop Eval 1 completed: Yes
--- NOTE | 2025-05-02 10:46 | PCM.POSTANE2 ---
Anesthesia Postop Eval I Sum Postop Eval Completion status Anesthesia document: Postop Eval 1 completed: Yes Anesthesia Postop Eval I Summary Anesthesia Postop Eval I Summary: Anesthesia Postop Eval I: Assessment Summary Airway patent Yes 05/02/25 08:30 [email or web address] Spontaneous unlabored Yes 05/02/25 08:30 [email or web address] respirations Mental status Asleep 05/02/25 08:30 [email or web address] nausea No 05/02/25 08:30 [email or web address] Vomiting No 05/02/25 08:30 [email or web address] Anesthesia Postop Eval I: Fluid Summary Crystalloid volume administer 400 05/02/25 08:30 [email or web address] (ml) Colloids volume administered ( ml) Blood Product volume administered (ml) Total IV fluid infused 400 05/02/25 08:30 [email or web address] Anesthesia Postop Eval I: Summary Notes Anesthesia Complication No 05/02/25 08:30 [email or web address] Anesthesia Complication Comment: Post-operative progress note Anesthesia: Postop Eval II Evaluation Mental status: Awake and Calm Pain Level: 0 nausea: No Vomiting: No Complications Anesthesia Complication: No
== END 2025-05-02 08:56 | disposition home or self-care (01) ==
LOC: EN 06:44 → AC 06:46
PROVIDERS: PCP Family Medicine; Referring Provider Family Medicine; Visit Provider Surgery
PROC: 0DJD8ZZ Inspection of Lower Intestinal Tract, Via Natural or Artificial Opening Endoscopic (ICD-10-PCS; CPT 45378; principal; 2025-05-02 07:55)
DX: Z12.11 Encounter for screening for malignant neoplasm of colon (principal)
CPT/HCPCS: G0121; J2405